=== PATIENT | male | born 1970 | race Caucasian/White ===

== ENCOUNTER → 2017-05-09 | Outpatient (CLI) | payer OTHER | LOC: M RAD 08:31 | DX: J32.0 Chronic maxillary sinusitis (principal) ==

== ENCOUNTER 2017-12-27 06:57 | Day surgery (SDC) | payer OTHER ==
[2017-12-27] MEDS ORDERED: ROCURONIUM BROMIDE 50 MG/5 ML VIAL As Ordered (08:39)
[2017-12-27] MEDS ORDERED: dexameTHASONE 4 MG/ML 1ML VIAL (J1100) As Ordered (08:39)
[2017-12-27] MEDS ORDERED: ONDANSETRON 4MG/2ML VIAL (J2405) As Ordered (08:39)
[2017-12-27] MEDS ORDERED: PROPOFOL 200 MG/20 ML VIAL As Ordered (08:39)
[2017-12-27] MEDS ORDERED: fentaNYL 250 MCG/5 ML INJECTION (J3010) As Ordered (08:39)
[2017-12-27] MEDS ORDERED: LIDOCAINE 2% INJ 100 MG/5 ML SDV (FOR ANES.) As Ordered (08:39)
[2017-12-27] MEDS ORDERED: MIDAZOLAM INJ 2 MG/2 ML VIAL (J2250) As Ordered (08:39)
[2017-12-27] MEDS: LIDOCAINE W/EPINEPHRINE 1% 20ML VIAL As Ordered (08:46)
[2017-12-27] MEDS ORDERED: GLYCOPYRROLATE INJ 0.2 MG/ML 2 ML VIAL As Ordered ×2 (08:46)
[2017-12-27] MEDS: SODIUM CHLORIDE 0.9% NASAL GEL 15GM (AYR) As Ordered (08:46)
[2017-12-27] MEDS ORDERED: NEOSTIGMINE 10 MG/10 ML VIAL (J2710) As Ordered (08:46)
[2017-12-27] MEDS: OXYMETAZOLINE NASAL SPRAY (AFRIN) As Ordered (08:46)
[2017-12-27] MEDS: METHYLENE BLUE 0.5% (5MG/ML) 10 ML AMP (PROVAYBLUE)(Q9968 PER 1MG) As Ordered (08:47)
[2017-12-27] MEDS ORDERED: LR 1,000 ML IV (09:30)
[2017-12-27] MEDS ORDERED: ACETAMINOPH W/CODEINE #3 TAB UD PO (09:30)
[2017-12-27] MEDS ORDERED: ONDANSETRON 4MG/2ML VIAL (J2405) IV (09:30)
[2017-12-27] MEDS: PERCOCET 5MG/325MG TAB PO ×2 (09:34→12:20)
[2017-12-27] MEDS: fentaNYL 100 MCG/2 ML INJECTION (J3010) IV ×4 (09:45→10:00)
[2017-12-27] MEDS ORDERED: PERCOCET 5MG/325MG TAB As Ordered (12:20)
== END 2017-12-27 13:15 | disposition home or self-care (01) ==
LOC: M SDC 06:57
DX: J34.2 Deviated nasal septum (principal); J34.3 Hypertrophy of nasal turbinates; I10 Essential (primary) hypertension; K21.9 Gastro-esophageal reflux disease without esophagitis; K44.9 Diaphragmatic hernia without obstruction or gangrene; Z79.899 Other long term (current) drug therapy
CPT/HCPCS: 30520

== ENCOUNTER → 2020-04-25 | Outpatient (CLI) | payer OTHER ==
[~2020-04-25] MED LIST: LISI10TA22 PO; PANT40TA29 PO; PROHANCE 279.3MG/ML 15ML VIAL As Ordered ONE; PROHANCE 279.3MG/ML 5ML VIAL As Ordered ONE
--- NOTE | 2020-04-26 09:43 | REP ---
INDICATION: ELEVATED PSA. COMPARISON: None. TECHNIQUE: Using a phased array surface coil, small sycke-wo-yuja imaging was acquired using T2 weighted scans in the axial, coronal, and sagittal imaging planes. Small yumci-oy-hugq diffusion-weighted sequences are acquired. Small vgweo-bx-nwtp axial T1 weighted scans are acquired dynamically before and after the intravenous administration of 18 mL of ProHance. Imaging is reviewed using the [employer] computer-aided detection system. FINDINGS: The visualized osseous structures demonstrate normal marrow signal with no bone lesion identified. No adenopathy or free fluid is seen in the visualized pelvis. Small bilateral inguinal hernias contain fat. Prostate measures 5.1 x 3.8 x 3.7 cm for total volume of 36.18 cc. There is diffuse heterogeneous signal and enhancement. Three regions of interest are identified for MR ultrasound fusion biopsy. First in the bilateral basilar lateral peripheral zones, mid posterior peripheral zones and apicoposterior peripheral zones there is geographic mild low signal on T2 and diffusion weighted images with diffuse type 3 enhancement. In total the approximate dimensions are 4.8 x 1.1 x 2.8 cm, total volume 8.17 cc. Overall level of suspicion is 3/5 with clinically significant cancer indeterminate. The findings could be due to prostatitis. Secondly in the right mid anterior and apical anterior stroma and apical anterior transitional zone there is an area of extremely low signal on T2 and diffusion-weighted images without enhancement. The area measures 1.6 x 0.7 x 2.1 cm for total volume of 1.17 cc. Overall level of suspicion is 3/5 with clinically significant cancer indeterminate. Finally in the left mid transitional zone there is an area of extremely low signal on T2 and diffusion-weighted images without associated enhancement. The area measures 2.0 x 0.9 x 1.4 cm for total volume of 1.32 cc. Overall level of suspicion is 2/5 with clinically significant cancer on likely to be present. IMPRESSION: There are 3 regions of interest identified in the prostate as targets for MR ultrasound fusion guided biopsy, discussed in detail above. <Electronically signed by Ricardo Bosch > 04/26/20 0939
== END ==
LOC: M RAD 17:36
PROVIDERS: ATTEND Specialist
DX: R97.20 Elevated prostate specific antigen [PSA] (principal)
CPT/HCPCS: 72197; A9576